=== PATIENT | female | born 1985 | race Caucasian/White ===

== ENCOUNTER 2023-05-28 14:34 | Emergency (ER) | payer OTHER ==
[~2023-05-28] VITALS: Ht 165.1 cm; Wt 79.3 kg
[2023-05-28] MEDS ORDERED: AMOX TR-K CLV1 EAC1 PO (15:12)
[2023-05-28 15:30] VITALS: BP 129/80
== END 2023-05-28 15:33 | disposition home or self-care (01) ==
LOC: ED 14:34
DX: S61.452A Open bite of left hand, initial encounter (principal); S61.451A Open bite of right hand, initial encounter; L08.9 Local infection of the skin and subcutaneous tissue, unspecified; W54.0XXA Bitten by dog, initial encounter; Z23 Encounter for immunization
CPT/HCPCS: 90715